=== PATIENT | male | born 1960 | race Caucasian/White ===

== ENCOUNTER 2023-03-01 07:08 | Day surgery (SDC) | payer BC ==
[2023-02-28 15:55] LABS: Potassium 4.2 mEq/L (3.5-5.1)
[2023-03-01] MEDS: Ringers Lactate 1,000 ML IV ONE ×2 (07:30→07:38)
[2023-03-01] MEDS ORDERED: LIDOCAINE 1% MPF 30 ML VIAL ONE (07:34)
[2023-03-01] MEDS ORDERED: propofoL 200 MG/20 ML VIAL IV ONE (07:34)
[2023-03-01 08:28] VITALS: O2SAT 98
[2023-03-01 09:19] VITALS: BP 115/75; TEMP 96.9
--- NOTE | 2023-03-05 11:51 | EKG ---
Test Date: 2023-02-28 Test Time: 16:03:59 Gis Programmer: SHARI MEASUREMENT RESULTS: Intervals: Rate: 56 [place]: 152 QRSD: 120 QT: 424 QTc: 409 [place]: P: 58 [place]: 152 QRS: 26 T: 34 INTERPRETIVE STATEMENTS: Sinus bradycardia Septal infarct, age undetermined Abnormal ECG No previous ECG available for comparison Electronically Signed On 03-05-23 11:47:24 [employer] ROOM OPERATOR by Scott Corbin
== END 2023-03-01 09:06 | disposition home or self-care (01) ==
LOC: OR 07:08
PROVIDERS: ATTEND Surgery
PROC: 0DBM8ZX Excision of Descending Colon, Via Natural or Artificial Opening Endoscopic, Diagnostic (ICD-10-PCS; principal; 2023-03-01 08:00)
DX: R19.5 Other fecal abnormalities (principal); K64.8 Other hemorrhoids; K63.5 Polyp of colon
CPT/HCPCS: 93005; 80048; 36415; 88305; 45380; J2704; J2001; J7120